=== PATIENT | female | born 1980 | race African-American/Black ===

== ENCOUNTER 2017-07-22 09:03 | Emergency (ER) | payer SELFPAY ==
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
== END 2017-07-22 10:53 | disposition home or self-care (01) ==
LOC: MW.ED 09:03
DX: M54.5 Low back pain (principal); V49.50XA Passenger injured in collision with unspecified motor vehicles in traffic accident, initial encounter; Y92.411 Interstate highway as the place of occurrence of the external cause
CPT/HCPCS: 72100; 72100-26; 81001; 81025; 99283

== ENCOUNTER 2021-12-22 16:45 | Emergency (ER) | payer BC ==
[2021-12-22] MEDS ORDERED: Ketorolac 30 MG/ML SDV IM ONE (20:01)
== END 2021-12-22 20:13 | disposition home or self-care (01) ==
LOC: MW.ED 16:45
DX: N94.6 Dysmenorrhea, unspecified (principal)
CPT/HCPCS: 36415; 80053; 81001; 84484; 84702; 84703; 85025; 86900; 86901; 99283; 99284

== ENCOUNTER 2024-06-09 08:09 | Emergency (ER) | payer BC ==
[2024-06-09] MEDS: Sodium Chloride 0.9% 1,000 ML IV ONE (09:11)
[2024-06-09 09:16] LABS: APPEARANCE,URINE CLOUDY; BILIRUBIN,URINE NEGATIVE (NEGATIVE); GLUCOSE,URINE NEGATIVE (NEGATIVE); KETONES,URINE NEGATIVE (NEGATIVE); LEUKOCYTE ESTERASE,URINE NEGATIVE (NEGATIVE); NITRITE,URINE NEGATIVE (NEGATIVE); OCCULT BLOOD,URINE LARGE (NEGATIVE); PROTEIN,URINE TRACE mg/dL (NEGATIVE); UROBILINOGEN,URINE 0.2 EU/dL (<2.0)
[2024-06-09 09:24] LABS: COLOR,URINE DARK YELLOW
[2024-06-09 09:25] LABS: BACTERIA,URINE NOT SEEN (NEGATIVE); EPITHELIAL CELLS,URINE RARE (NONE-FEW); RBC,URINE TOO NUMEROUS TO CT (0-2/HPF); WBC,URINE 0-1 (0-5/HPF)
[2024-06-09 09:29] LABS: BASOPHILS ABSOLUTE AUTO 0.03 K/uL (0.00-0.20); BASOPHILS PERCENT AUTO 0.4 % (0.0-1.0); EOSINOPHILS ABSOLUTE AUTO 0.05 K/uL (0.00-0.45); EOSINOPHILS PERCENT AUTO 0.6 % (0.0-6.0); HEMATOCRIT 39.6 % (37.0-47.0); IMMATURE GRAN ABSOLUTE AUTO 0.02 K/uL (0.00-0.05); IMMATURE GRAN PERCENT AUTO 0.3 % (0.0-0.4); LYMPHOCYTES ABSOLUTE AUTO 1.72 K/uL (1.00-4.80); LYMPHOCYTES PERCENT AUTO 21.9 % (24.0-44.0); MEAN CORPUSCULAR HEMOGLOBIN 28.2 pg (28.0-32.0); MEAN CORPUSCULAR HGB CONC 32.8 g/dL (32.0-36.0); MEAN CORPUSCULAR VOLUME 85.9 fL (83.0-99.0); MEAN PLATELET VOLUME 13.1 fL (9.4-12.3); MONOCYTES ABSOLUTE AUTO 0.39 K/uL (0.00-0.80); NEUTROPHILS ABSOLUTE AUTO 5.66 K/uL (1.80-7.70); NEUTROPHILS PERCENT AUTO 71.8 % (41.0-71.0); PLATELET COUNT,PLT 161 K/uL (150-400); RED BLOOD CELL COUNT 4.61 M/uL (4.10-5.30); WHITE BLOOD CELL COUNT,WBC 7.87 K/uL (3.9-11.3)
[2024-06-09 09:53] LABS: A/G RATIO 0.8 (0.9-1.6); ALBUMIN 3.6 g/dL (3.4-5.0); BILIRUBIN DIRECT 0.1 mg/dL (0.0-0.5); BILIRUBIN INDIRECT 0.4; BILIRUBIN TOTAL 0.5 mg/dL (0.2-1.0); CALCIUM 9.6 mg/dL (8.5-10.1); CARBON DIOXIDE,CO2 26.7 mmol/L (21.0-32.0); CREATININE 0.7 mg/dL (0.6-1.0); EST CRCL DRUG DOSING (CG) 79.42 mL/min; POTASSIUM,K 3.8 mmol/L (3.5-5.1)
[2024-06-09] MEDS: Iopamidol 755 MG/ML 500 ML Multipack Bottle IVPUSH STA (11:28)
== END 2024-06-09 12:19 | disposition home or self-care (01) ==
LOC: MW.ED 08:09
DX: K43.6 Other and unspecified ventral hernia with obstruction, without gangrene (principal); D25.9 Leiomyoma of uterus, unspecified; Z75.8 Other problems related to medical facilities and other health care
CPT/HCPCS: 36415; 74177; 76856; 80048; 80076; 81001; 81025; 83690; 84702; 85025; 99284; Q9967